=== PATIENT | female | born 1940 | race African-American/Black ===

== ENCOUNTER 2018-12-15 12:38 | Inpatient (IN) | payer OTHER ==
[2018-12-15 14:49] LABS: Protime INR 1.23
[2018-12-15 14:59] LABS: ALT/SGPT 11 U/L (12-78); AST/SGOT 25 U/L (15-37); Albumin 2.9 g/dL (3.4-5.0); Alkaline Phosphatase 68 U/L (45-117); BUN Blood Urea Nitrogen 6 mg/dL (7-18); Bicarbonate 29 mmol/L (21-32); Bilirubin Direct 0.2 mg/dL (0-0.2); Bilirubin Total 0.7 mg/dL (0.2-1.0); Glucose Level 108 mg/dL (74-106); Potassium 3.8 mmol/L (3.5-5.1); Protein, Total 7.9 g/dL (6.4-8.2); Sodium Level 139 mmol/L (136-145)
[2018-12-15 15:00] LABS: Hematocrit 27.9 % (36.0-45.0); MPV 8.3 fL (7.6-11.3); RBC Red Blood Cell Count 2.95 M/uL (3.86-4.86)
--- NOTE | 2018-12-15 15:27 | RAD REPORT ---
EXAM DESCRIPTION: RAD - Chest Single View - 12/15/2018 3:07 pm CLINICAL HISTORY: left foot wound Chest pain. COMPARISON: No comparisons FINDINGS: Portable technique limits examination quality. The lungs are emphysematous but grossly clear. The heart is normal in size. 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 IMPRESSION: COPD
--- NOTE | 2018-12-15 15:28 | RAD REPORT ---
EXAM DESCRIPTION: RAD - Foot Left 3 View - 12/15/2018 3:07 pm CLINICAL HISTORY: open wound Pain and swelling COMPARISON: No comparisons FINDINGS: Soft tissue defect is seen along the lateral anterior aspect of the foot. Evidence of mids haft amputation fifth metatarsal seen. Subtle demineralization of the amputation stump laterally prob ably indicates osteomyelitis. Significant soft tissue swelling is noted which limits bone detail, gwen ng with osteopenia. Posterior and plantar calcaneal spurs are seen.
--- NOTE | 2018-12-15 15:39 | EDPHYS ---
Physician Documentation [facility] Name: Paula Cobian Age: 78 yrs Sex: Female : 1940 Arrival Date: 12/15/2018 Time: 12:43 Bed 2 Private MD: ED Physician John Joseph HPI: 12/15 13:45 This 78 yrs old Black Female presents to ER via Ambulatory with complaints of Feet cp Swelling, Wound Infection. 13:45 The patient presents with infection. cp 13:45 The complaints affect the left foot. 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 Associated signs and symptoms: Pertinent negatives: calf tenderness, fever. Patient reports worsening infection of chronic open wound left foot. Historical: - Allergies: 12:53 No Known Allergies; hj - Home Meds: 12:53 Unable to obtain [Active]; hj - PMHx: 12:53 Diabetes - NIDDM; Hypertension; hj - PSHx: 12:53 foot surgery; hj - Immunization history:: Adult Immunizations not up to date. - Social history:: Smoking status: Patient/guardian denies using tobacco, Patient/guardian denies using alcohol. - Ebola Screening: : Patient negative for fever greater than or equal to 101.5 degrees Fahrenheit, and additional compatible Ebola Virus Disease symptoms Patient denies exposure to infectious person Patient denies travel to an Ebola-affected area in the 21 days before illness onset. ROS: 13:50 Constitutional: Negative for body aches, chills, fever, poor PO intake. cp 13:50 Eyes: Negative for injury, pain, redness, and discharge. cp 13:50 ENT: Negative for drainage from ear(s), ear pain, sore throat, difficulty swallowing, difficulty handling secretions. 13:50 Cardiovascular: Negative for chest pain. 13:50 Respiratory: Negative for cough, shortness of breath, wheezing. 13:50 Abdomen/GI: Negative for abdominal pain, nausea, vomiting, and diarrhea. 13:50 Skin: Positive for of the left foot, open wound. 13:50 Neuro: Negative for altered mental status, headache. 13:50 All other systems are negative. Exam: 14:00 Constitutional: The patient appears in no acute distress, alert, awake, cp non-diaphoretic, non-toxic, well developed, well nourished. 14:00 Head/Face: Normocephalic, atraumatic. cp 14:00 Eyes: Periorbital structures: appear normal, Pupils: equal, round, and reactive to light and accomodation, Extraocular movements: intact throughout, Conjunctiva: normal, no exudate, no injection, Sclera: no appreciated abnormality, Lids and lashes: appear normal, bilaterally. 14:00 ENT: External ear(s): are unremarkable, Nose: is normal, Mouth: Lips: moist, Oral mucosa: moist, Posterior pharynx: is normal, airway is patent, no erythema, no exudate. 14:00 Neck: ROM/movement: is normal, is supple, without pain, no range of motions limitations, no nuchal rigidity. 14:00 Chest/axilla: Inspection: normal, Palpation: is normal, no crepitus, no tenderness. 14:00 Cardiovascular: Rate: normal, Rhythm: regular, Edema: ankle edema, that is mild, JVD: is not appreciated. 14:00 Respiratory: the patient does not display signs of respiratory distress, Respirations: normal, no use of accessory muscles, no retractions, no splinting, no tachypnea, labored breathing, is not present, Breath sounds: are clear throughout, no decreased breath sounds, no stridor, no wheezing. 14:00 Abdomen/GI: Inspection: abdomen appears normal, Palpation: abdomen is soft and non-tender, in all quadrants, involuntary guarding, is not appreciated. 14:00 Back: pain, is absent, ROM is normal. 14:00 Skin: open wound lateral aspect left foot with foul odor and mild purulent discharge. 14:00 Neuro: Orientation: no acute changes, per family, Mentation: no acute changes, per family. 14:16 ECG was reviewed by the Attending Physician. Vital Signs: 12:54 BP 132 / 68; Pulse 89; Resp 18; Temp 97.6(O); Pulse Ox 100% on R/A; Weight 72.57 kg; hj Height 6 ft. 1 in. (185.42 cm); Pain 8/10; 16:38 BP 134 / 66; Pulse 87; Resp 18; Temp 97.6; Pulse Ox 100% on R/A; Height 5 ft. 2 in. sg (157.48 cm) (R); Pain 0/10; 16:38 Body Mass Index 29.26 (72.57 kg, 157.48 cm) sg MDM: 13:17 Patient medically screened. cp 13:45 Differential diagnosis: cellulitis, osteomyelitis, sepsis. cp 14:40 Physician consultation: Jose L Harden DO was contacted at 14:30, regarding admission, cp to the medical/surgical unit. patient's condition, and will see patient in ED, shortly, would like medications started, Vancomycin and cefepime antibiotics. 15:35 Data reviewed: vital signs, nurses notes, lab test result(s), EKG, radiologic studies, cp plain films. 15:35 Test interpretation: by ED physician or midlevel provider: ECG, plain radiologic cp studies. 12/15 13:34 Order name: Wound Culture 12/15 13:34 Order name: Basic Metabolic Panel 12/15 13:34 Order name: Blood Culture Adult (2) 12/15 13:34 Order name: CBC with Diff 12/15 15:12 Interpretation: Normal except: RBC 2.95; HGB 8.8; HCT 27.9; MCHC 31.4; PLT 740; RDW cp 22.6. 12/15 13:34 Order name: Lactate; Complete Time: 15:04 12/15 13:34 Order name: LFT's; Complete Time: 15:04 12/15 15:05 Interpretation: Normal except: ALT 11; ALB 2.9; GLOB 5.0; A/G 0.6. 12/15 13:34 Order name: Procalcitonin 12/15 13:34 Order name: Protime (+inr); Complete Time: 15:04 12/15 13:34 Order name: Ptt, Activated; Complete Time: 15:04 12/15 13:34 Order name: Urine Microscopic Only 12/15 13:35 Order name: Wound Culture [facility] 12/15 13:35 Order name: Basic Metabolic Panel; Complete Time: 15:04 EDAZ 12/15 15:05 Interpretation: Normal except: GLUC 108; BUN 6. cp 12/15 13:35 Order name: Blood Culture [facility] 12/15 15:10 Order name: Manual Differential [facility] 12/15 13:34 Order name: XRAY Foot LEFT 3 View; Complete Time: 15:32 cp 12/15 15:33 Interpretation: Reviewed report. cp 12/15 13:34 Order name: Chest Single View XRAY; Complete Time: 15:32 cp 12/15 13:34 Order name: Accucheck; Complete Time: 14:31 cp 12/15 13:34 Order name: Cardiac monitoring; Complete Time: 14:30 cp 12/15 13:34 Order name: EKG - Nurse/Tech; Complete Time: 14:30 cp 12/15 13:34 Order name: IV Saline Lock - Large Bore; Complete Time: 14:31 cp 12/15 13:34 Order name: Labs collected and sent; Complete Time: 14:31 cp 12/15 13:34 Order name: O2 Per Protocol; Complete Time: 14:31 cp 12/15 13:34 Order name: O2 Sat Monitoring; Complete Time: 14:31 cp 12/15 15:22 Order name: Diet Ada 1800 August; Complete Time: 15:22 ss EC:16 Rate is 74 beats/min. Rhythm is regular. HI interval is normal. QRS interval is normal. cp QT interval is normal. T waves are Inverted in lead aVL. Interpreted by me. Reviewed by me. Administered Medications: 15:50 Drug: Cefepime 1 grams Route: IVPB; Rate: 200 ml/hr; Infused Over: 30 mins; Site: left sg antecubital; 15:55 Drug: vancoMYCIN 1 grams Route: IVPB; Infused Over: 2 hrs; Site: left antecubital; Disposition: 12/16 10:19 Co-signature as Attending Physician, John Joseph MD I agree with the assessment and [facility] plan of care. Disposition: 12/15/18 15:38 Hospitalization ordered by Jose L Harden for Inpatient Admission. Preliminary diagnosis are Osteomyelitis - Left foot, Iron deficiency anemia. - Bed requested for Telemetry/MedSurg (Inpatient). - Status is Inpatient Admission. ss - Condition is Stable. - Problem is an ongoing problem. - Symptoms have improved. UTI on Admission? No Signatures: Dispatcher [employer] EDMS Lorie Hawkins Steven, RN RN sg Anderson, Corey, MD MD cha Smirch, Shelby, RN RN Umang Serrano RN RN John Hernández PA PA cp Corrections: (The following items were deleted from the chart) 12/15 15:58 15:38 Hospitalization Ordered by Jose L Harden DO for Inpatient Admission. Preliminary bd diagnosis is Osteomyelitis - Left foot; Iron deficiency anemia. Bed requested for Telemetry/MedSurg (Inpatient). Status is Inpatient Admission. Condition is Stable. Problem is an ongoing problem. Symptoms have improved. UTI on Admission? No. cp 16:52 15:58 12/15/2018 15:38 Hospitalization Ordered by Jose L Harden DO for Inpatient ss Admission. Preliminary diagnosis is Osteomyelitis - Left foot; Iron deficiency anemia. Bed requested for Telemetry/MedSurg (Inpatient). Status is Inpatient Admission. Condition is Stable. Problem is an ongoing problem. Symptoms have improved. UTI on Admission? No. bd
--- NOTE | 2018-12-15 15:39 | ER ---
Nurse's Notes [facility] Name: Paula Cobian Age: 78 yrs Sex: Female : 1940 Arrival Date: 12/15/2018 Time: 12:43 Bed 2 Private MD: Diagnosis: Osteomyelitis-Left foot;Iron deficiency anemia Presentation: 12/15 12:50 Presenting complaint: Patient states: i have this wound on my L foot for a while, had hj surgery on one of the toes of the L foot, now the foot seems like infected and is swollen; reports chills;. Transition of care: patient was not received from another setting of care. Onset of symptoms was December 15, 2018. Risk Assessment: Do you want to hurt yourself or someone else? Patient reports no desire to harm self or others. Initial Sepsis Screen: Does the patient meet any 2 criteria? Yes Does the patient have a suspected source of infection? Yes: Skin breakdown/wound. Care prior to arrival: None. 12:50 Method Of Arrival: Ambulatory 12:50 Acuity: KRISTIN 3 hj Triage Assessment: 12:54 General: Appears in no apparent distress. uncomfortable, Behavior is calm, cooperative, hj appropriate for age. Pain: Complains of pain in left foot Pain currently is 8 out of 10 on a pain scale. Historical: - Allergies: 12:53 No Known Allergies; hj - Home Meds: 12:53 Unable to obtain [Active]; hj - PMHx: 12:53 Diabetes - NIDDM; Hypertension; hj - PSHx: 12:53 foot surgery; hj - Immunization history:: Adult Immunizations not up to date. - Social history:: Smoking status: Patient/guardian denies using tobacco, Patient/guardian denies using alcohol. - Ebola Screening: : Patient negative for fever greater than or equal to 101.5 degrees Fahrenheit, and additional compatible Ebola Virus Disease symptoms Patient denies exposure to infectious person Patient denies travel to an Ebola-affected area in the 21 days before illness onset. Screenin:54 Abuse screen: Denies threats or abuse. Denies injuries from another. Nutritional hj screening: No deficits noted. Tuberculosis screening: No symptoms or risk factors identified. Fall Risk None identified. Assessment: 13:15 General: Appears in no apparent distress. comfortable, slender, well developed, well sg nourished. Pain: Complains of pain in left foot Quality of pain is described as aching, tender. Neuro: Level of Consciousness is awake, alert, obeys commands, Oriented to person, place, time, Pick Up are equal bilaterally Moves all extremities. Full function Speech is normal. Cardiovascular: Heart tones S1 S2 present Capillary refill is brisk in bilateral fingers Patient's skin is warm and dry. Chest pain is denied. Respiratory: Airway is patent Respiratory effort is even, unlabored, Respiratory pattern is regular, symmetrical. GI: No signs and/or symptoms were reported involving the gastrointestinal system. : No signs and/or symptoms were reported regarding the genitourinary system. EENT: No signs and/or symptoms were reported regarding the EENT system. Derm: Skin is fragile, is thin, Skin is dry, Skin is normal, Skin temperature is cool. Musculoskeletal: Range of motion: intact in all extremities. 15:05 Reassessment: Dr. Harden at bedside to discuss admission and plan of care with patient. ss Pt cleaned of urinary incontinence. 15:23 Reassessment: Patient appears in no apparent distress at this time. sg 15:50 Reassessment: Patient appears in no apparent distress at this time. a wound culture has sg been obtained of pt left foot, surgical wound. 16:02 Reassessment: Magaly BROWN at bedside with pt at this time, update on need for admit, pt sg and pt family stated understanding. Vital Signs: 12:54 BP 132 / 68; Pulse 89; Resp 18; Temp 97.6(O); Pulse Ox 100% on R/A; Weight 72.57 kg; hj Height 6 ft. 1 in. (185.42 cm); Pain 8/10; 16:38 BP 134 / 66; Pulse 87; Resp 18; Temp 97.6; Pulse Ox 100% on R/A; Height 5 ft. 2 in. sg (157.48 cm) (R); Pain 0/10; 16:38 Body Mass Index 29.26 (72.57 kg, 157.48 cm) sg ED Course: 12:43 Patient arrived in ED. mr 12:53 Triage completed. hj 12:54 Arm band placed on right wrist. hj 12:54 Patient has correct armband on for positive identification. Placed in gown. Bed in low hj position. Call light in reach. Side rails up X 1. Adult w/ patient. 13:17 John Hernández PA is PHCP. cp 13:17 John Joseph MD is Attending Physician. cp 13:40 No provider procedures requiring assistance completed. Initial lab(s) drawn, by ED sg staff, sent to lab. Inserted saline lock: 22 gauge in left antecubital area, using aseptic technique. Blood collected. IV inserted by radio technicianrias Stephen. 15:07 XRAY Foot LEFT 3 View In Process Unspecified. EDMS 15:08 Chest Single View XRAY In Process Unspecified. EDMS 15:30 Jim Muniz, RN is Primary Nurse. sg 15:33 Jose L Harden DO is Hospitalizing Provider. cp Administered Medications: 15:50 Drug: Cefepime 1 grams Route: IVPB; Rate: 200 ml/hr; Infused Over: 30 mins; Site: left sg antecubital; 15:55 Drug: vancoMYCIN 1 grams Route: IVPB; Infused Over: 2 hrs; Site: left antecubital; sg Outcome: 15:38 Decision to Hospitalize by Provider. cp 16:52 Patient left the ED. ss Signatures: Dispatcher [employer] EDGA Jim Muniz, RN RN Nitza Stokes mr Radha Alfredo RN RN Umang Serrano RN RN hj Page, Corey, PA PA cp Corrections: (The following items were deleted from the chart) 12:57 12:54 Pulse 89bpm; Resp 18bpm; Pulse Ox 100% RA; Temp 97.6F Oral; 72.57 kg; Height 6 hj ft. 1 in.; BMI: 21.1; Pain 8/10; hj 14:50 12:50 Initial Sepsis Screen: Does the patient meet any 2 criteria? No. Patient's hj initial sepsis screen is negative. Does the patient have a suspected source of infection? No. Patient's initial sepsis screen is negative. hj
[2018-12-15] MEDS ORDERED: VANCOMYCIN/NS 1 gm 1 GM/250 ML BAG IV ONE (16:00)
[2018-12-15] MEDS ORDERED: CEFEPIME/SWI 1gm 10 ML IVP ONE ×2 (16:00)
[2018-12-15 16:06] LABS: Blood Morphology Comment NOTED (NOT SEEN); Hypochromasia 1+; Platelet Estimate INCR; Poikilocytosis 1+
[2018-12-15 16:07] LABS: Ovalocytes 1+
--- NOTE | 2018-12-15 16:22 | P.HP ---
Certification for Inpatient Patient admitted to: Inpatient With expected LOS: >2 Midnights Patient will require the following post-hospital care: None Practitioner: I am a practitioner with admitting privileges, knowledge of patient current condition, hospital course, and medical plan of care. Services: Services provided to patient in accordance with Admission requirements found in Title 42 Section 412.3 of the Code of Federal Regulations Patient History Date of Service: 12/15/18 Primary Care Provider: Dr. Chavez Reason for admission: Erythema, pain to the left foot History of Present Illness: 78-year-old female presented to the emergency room with left pain and swelling to the left foot. Patient had amputation of the left 5th metatarsal in August 2018. Since then she has been going to wound care for treatment. Over the past several days she has been having increasing pain, erythema. This is not improved. She came to the ER for further evaluation. Patient with history of diabetes. Patient reports seen hematology for anemia. In the ER patient evaluated. White count 8.9, hemoglobin 8.8. Platelet count of 740. Sodium 139, potassium 3.8, BUN of 6, creatinine 0.9 with a GFR of 90. Glucose 108. Lactic acid within normal range. Pro calcitonin negative. Chest x-ray showed COPD changes. X-ray of the foot shows possible osteo myelitis. Patient was admitted for treatment. When I saw the patient in the ER, patient was stable. Patient with history of diabetes, COPD, anemia. Patient was a poor historian. Home medications list reviewed: No - Past Medical/Surgical History Diabetic: Yes -: Diabetes mellitus type 2 -: History of left foot amputation -: Anemia -: amputation to left foot Psychosocial/ Personal History: Patient lives with son. - Family History Family History: Reviewed- Non-Contributory - Social History Smoking Status: Current every day smoker Alcohol use: No CD- Drugs: No Caffeine use: No Place of Residence: Home Review of Systems General: As per HPI Eyes: Unremarkable ENT: Unremarkable Respiratory: Unremarkable Cardiovascular: Unremarkable Gastrointestinal: Unremarkable Genitourinary: Unremarkable Musculoskeletal: Unremarkable Integumentary: As per HPI Neurological: Unremarkable Lymphatics: Unremarkable Physical Examination - Physical Exam General: Alert, In no apparent distress, Oriented x3, Cooperative HEENT: Atraumatic Neck: Supple, No Thyromegaly Respiratory: Clear to auscultation bilaterally, Normal air movement Cardiovascular: Normal pulses, Regular rate/rhythm Gastrointestinal: Normal bowel sounds, Soft and benign, Non-distended, No tenderness, No masses, No rebound, No guarding Integumentary: Other (Left foot cellulitis with amputation noted. ) Neurological: Normal speech, Normal strength at 5/5 x4 extr, Normal tone, Normal affect - Studies Laboratory Data (last 24 hrs) 12/15/18 14:10: PT 14.4 H, INR 1.23, APTT 42.4 H 12/15/18 14:10: WBC 8.9, Hgb 8.8 L, Hct 27.9 L, Plt Count 740 H 12/15/18 14:10: Sodium 139, Potassium 3.8, BUN 6 L, Creatinine 0.58, Glucose 108 H, Total Bilirubin 0.7, AST 25, ALT 11 L, Alkaline Phosphatase 68 Assessment and Plan - Plan Impression: Left foot cellulitis complicated with history of left 5th metatarsal amputation likely with underlying osteomyelitis Diabetes mellitus type 2 COPD Chronic iron deficiency anemia with elevated platelets Tobacco abuse Plan: Left foot cellulitis complicated with history of left 5th metatarsal amputation likely with underlying osteomyelitis: Patient will be admitted for treatment. Will start IV antibiotic therapy. Blood and wound culture obtained. Will keep the patient NPO after midnight and have surgery evaluate patient. Surgery consulted. Will order arterial and venous Doppler of the lower extremities to further assess her vascular system. Will obtain MRI of the left foot to evaluate for osteomyelitis. I will turn the service over to Dr. Pedersen tomorrow. I will go over the plan of care with her. Diabetes mellitus type 2: Will start Accu-Cheks and sliding scale. Will check A1c. Will need to obtain home medication. COPD: Will start COPD medication. Will maintain sats above 90%. Chronic iron deficiency anemia with elevated platelets: Patient with chronic anemia. Overall stable. Platelets elevated likely related to iron deficiency anemia. Case discussed with hematology. She is to review prior records. Tobacco abuse: Will provide cessation education. Patient may require nicotine patch. Discharge Plan: Home Plan to discharge in: Greater than 2 days - Advance Directives Does patient have a Living Will: No Does patient have a Durable POA for Healthcare: No - Code Status/Comfort Care Code Status Assessed: Yes (Patient full code.) Time Spent Managing Pts Care (In Minutes): 55
[2018-12-15] MEDS ORDERED: HYDRALAZINE HCL 20 MG/ML VIAL IV PRN (17:41)
[2018-12-15] MEDS ORDERED: IPRATROPIUM BROM 0.5MG/2.5ML NEB PRN (17:41)
[2018-12-15] MEDS: INSULIN -REGULAR HUMAN 50 UNIT/0.5 ML ML SQ SCH ×2 (17:41→21:28)
[2018-12-15] MEDS ORDERED: ACETAMINOPHEN 500 MG TAB PO PRN (17:41)
[2018-12-15] MEDS ORDERED: ALBUTEROL 2.5 MG/3 ML NEB SOL NEB PRN (17:41)
[2018-12-15] MEDS ORDERED: ONDANSETRON 4 MG/2 ML VIAL IV PRN (17:41)
[2018-12-15] MEDS: TRAMADOL HCL 50 MG TAB PO PRN (18:21)
[2018-12-15] MEDS: NA CHLORIDE 0.9% 1,000 ML IV SCH ×2 (18:23→21:27)
[2018-12-15] MEDS ORDERED: D50W 25 GM/50 ML SYRINGE IV PRN (18:23)
[2018-12-15] MEDS ORDERED: GLUCAGON 1 MG/VIAL IM PRN (18:23)
[2018-12-15 18:26] LABS: Thyroid Stimulating Hormone 1.16 uIU/mL (0.360-3.740)
[2018-12-15] MEDS: ARFORMOTEROL TARTRATE 15 MCG/2 ML VIAL.NEB NEB SCH (19:39)
[2018-12-15 19:57] VITALS: BMI 29.2
[2018-12-15] MEDS: FAMOTIDINE 20 MG TAB PO SCH (21:27)
[2018-12-15] MEDS: ENOXAPARIN 40 MG/0.4 ML SQ SCH (21:31)
[2018-12-15] MEDS: HYDROCODONE/APAP 7.5/325 MG TAB PO PRN (23:36)
[2018-12-16] MEDS: TRAMADOL HCL 50 MG TAB PO PRN (02:59)
[2018-12-16 06:43] LABS: BUN Blood Urea Nitrogen 5 mg/dL (7-18); Bicarbonate 28 mmol/L (21-32); Glucose Level 70 mg/dL (74-106); Magnesium 1.6 mg/dL (1.8-2.4); Potassium 3.4 mmol/L (3.5-5.1); Sodium Level 144 mmol/L (136-145)
[2018-12-16] MEDS: INSULIN -REGULAR HUMAN 50 UNIT/0.5 ML ML SQ SCH ×4 (07:30→22:46)
[2018-12-16] MEDS: ARFORMOTEROL TARTRATE 15 MCG/2 ML VIAL.NEB NEB SCH ×2 (07:34→19:38)
[2018-12-16] MEDS ORDERED: MAGNESIUM SULFATE 1 gm IVPB 1 GM/100 ML BAG IV ONE (08:00)
--- NOTE | 2018-12-16 08:00 | RAD REPORT ---
EXAM DESCRIPTION: US - Extrem Venous W Compress Danie - 12/15/2018 11:10 pm CLINICAL HISTORY: Leg pain and swelling COMPARISON: None. TECHNIQUE: Real-time sonographic evaluation of the bilateral lower extremity common femoral, superfi cial femoral, popliteal and posterior tibial veins was performed. FINDINGS: Normal compressibility, flow augmentation, phasic flow and spontaneous flow are identified in the left and right lower extremity common femoral, superficial femoral, popliteal and posterior t ibial veins. No intraluminal filling defects seen. IMPRESSION: No DVT in either lower extremity.
--- NOTE | 2018-12-16 08:04 | RAD REPORT ---
EXAM DESCRIPTION: US - Lower Extremity Arterial Bilat - 12/15/2018 11:10 pm CLINICAL HISTORY: Bilateral lower extremity pain COMPARISON: None. TECHNIQUE: Waveforms were obtained along the length of each lower extremity. Visual inspection of th e lower extremity arterial tree performed. Velocity values were obtained and recorded. Doppler evalu ation performed. FINDINGS: The right common femoral and superficial femoral arteries show triphasic waveform pattern. Waveform transitions to more biphasic pattern at the popliteal artery. Posterior tibial artery on th e right was monophasic as was the dorsalis pedis artery. Left lower extremity shows a triphasic wavef orm pattern in the common femoral and superficial femoral arteries. Biphasic pattern seen in the popl iteal and posterior tibial arteries. Dorsalis pedis on the left was monophasic. Velocity values were obtained and recorded in the PACs system. IMPRESSION: No occlusion or focal flow restricting lesion identified. Mild plaquing changes are seen along the martínez throughout each lower extremity. Velocity values and waveforms indicate overall mild lower extremity peripheral arterial disease.
--- NOTE | 2018-12-16 08:52 | EKG ---
Test Date: 2018-12-15 Test Time: 14:04:42 Inter Com Installer: SWG MEASUREMENT RESULTS: Intervals: Rate: 74 NM: 162 QRSD: 92 QT: 414 QTc: 459 [place]: P: 52 NM: 162 QRS: 83 T: 83 INTERPRETIVE STATEMENTS: Normal sinus rhythm Nonspecific ST abnormality Abnormal ECG No previous ECG available for comparison Electronically Signed On 12-16-18 08:50:32 CDT by Russ Rivers
[2018-12-16 08:55] LABS: Absolute Lymphocytes (CBC) 1.6 K/uL (0.7-4.9); Absolute Monocytes 0.3 K/uL (0.1-1.3); Absolute Neutrophil 4.9 K/uL (1.8-8.0); Basophils % 0.9 % (0-1.3); Eosinophils % 2.2 % (0-4.4); Hematocrit 27.3 % (36.0-45.0); Lymphocytes % 23.1 % (15.3-44.8); Monocytes % 4.7 % (3.3-12.3)
[2018-12-16] MEDS: KCL 20 MEQ/100 mL IVPB 20 MEQ/100 ML BAG IV SCH ×3 (09:00→11:00)
[2018-12-16] MEDS ORDERED: VANCOMYCIN 1 GM in NA CHLORIDE 0.9% 500 ML IVPB SCH (09:00)
[2018-12-16] MEDS ORDERED: CEFEPIME 1 GM/VIAL IV SCH (09:00)
[2018-12-16] MEDS: SOD FERRIC GLUC COMPLX/SUCROSE 125 MG in NA CHLORIDE 0.9% 100 ML IV SCH (09:58)
[2018-12-16] MEDS: ENOXAPARIN 40 MG/0.4 ML SQ SCH (09:59)
[2018-12-16] MEDS: CEFEPIME/SWI 1gm 10 ML IVP SCH (09:59)
[2018-12-16] MEDS: FAMOTIDINE 20 MG TAB PO SCH ×2 (09:59→21:12)
[2018-12-16 10:25] LABS: Platelet Estimate INCR
[2018-12-16 10:26] LABS: Blood Morphology Comment NOT SEEN (NOT SEEN); Platelets, Giant PRESENT
[2018-12-16] MEDS: VANCOMYCIN 1.25 GM in NA CHLORIDE 0.9% 250 ML IVPB SCH (11:46)
[2018-12-16] MEDS ORDERED: POTASSIUM CL SA 10 MEQ TAB PO ONE (13:02)
[2018-12-16] MEDS: GLUCERNA SHAKE 237 ML CAN PO SCH ×2 (14:42→21:13)
--- NOTE | 2018-12-16 15:32 | CON ---
Date of Consultation: 12/15/2018 Reason: Wound, left foot. History Of Present Illness: The patient is an 78-year-old female, presented with left foot pain and swelling. She had an amputation of the left fifth metatarsal bone in August. She has been going t o her transfer knitter; however, she had increasing pain and erythema over the last few days, which had not improved. She came to the ER for further evaluation. No purulent discharge. Feel little better af ter admission. X-ray was done, which shows possible ostia, the patient was admitted and I was consul dawna. Review of Systems: Otherwise negative. No sore throat, runny nose, cough, headaches, or dizziness. No chest pain. No fever or chills. Past Medical History: Diabetes, anemia. Past Surgical History: Left foot fifth metatarsal bone amputation. Allergies: NONE. Social History: She does smoke, has been counseled. Does not drink alcohol. Lives at home. Physical Examination: Vital Signs: Stable. General: She is afebrile. She is awake, alert, a little confused. Head and Neck: No masses. Chest: Clear. Heart: S1 and S2. Abdomen: Soft. Extremity: Diminished dorsalis pedis and posterior tibial pulses. There is some wrinkling of the sk in. There is shiny skin. There is evidence of chronic arterial disease. There is also wound approx imately 6 x 3 cm on the lateral aspect of the left foot with granulation tissue and fibrin, no erythe ma around it. Currently, no warmth and no purulent discharge. Laboratory Data: White count is 7000, there is no left shift. Platelet count however is elevated. INR is 1.23. Chemistry reviewed. Her hemoglobin A1c is 5.1, procalcitonin is 1.16. Lactic acid was 1.2. X-ray of the foot shows soft tissue defect, evidence of midshaft amputation. Cell demineraliz ation of the amputation stump laterally, could be osteo. Plantar calcaneal spurs are seen. Her veno us Doppler, arterial Doppler reviewed. There is no blood clot and there is no correctable lesion in her arterial tree. Her Doppler ultrasound shows no occlusion or focal flow restricting lesion was id entified. Mild plaquing along the wall throughout each lower extremity. Velocity values and wavefor m indicating overall mild lower extremity peripheral arterial disease. Assessment: Infected wound, left foot. Possible osteomyelitis. Recommendations: Continue antibiotics as ordered. We will check her sedimentation rate, to see if i t helps because the patient was unable to tolerate an MRI because she could not straighten her legs. If actually needed, we could do a bone scan but at this time, we will wait for the sedimentation rat e, and we will treat the patient with oral antibiotics as she does not clearly have evidence of acute osteomyelitis at this time. The x-ray finding could be postsurgical changes. Plan of care was disc ussed in detail with Dr. Pedersen. MELISSA/SEPIDEH Voice ID: [id number] Report ID: [id number]
--- NOTE | 2018-12-16 15:55 | P.PN ---
Subjective Date of Service: 12/16/18 Primary Care Provider: Dr. Chavez Chief Complaint: Erythema, pain to the left foot Patient seen and examined at bedside. No family at bedside. Chart reviewed and case discussed with nursing staff. Complaining of left foot pain that has been unchanged from admission Review of Systems 10-point ROS is otherwise unremarkable Physical Examination - Vital Signs Temperature: 98.0 F Blood Pressure: 137/63 Pulse: 75 Respirations: 16 Pulse Ox (%): 99 - Physical Exam General: Alert, In no apparent distress, Oriented x3 HEENT: Atraumatic, PERRLA, EOMI Neck: Supple, JVD not distended Respiratory: Clear to auscultation bilaterally, Normal air movement Cardiovascular: Regular rate/rhythm, Normal S1 S2 Gastrointestinal: Normal bowel sounds, No tenderness Integumentary: Other (Left foot cellulitis with amputation noted, ) Assessment And Plan - Plan Left foot cellulitis 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 Will follow blood and wound cultures. Continue wound care Surgery consulted, recommendations appreciated. Discussed case with Dr. Leahy, No surgical intervention at this time. Venous Doppler negative for DVT. Arterial Doppler with mild lower extremity peripheral arterial disease without significant occlusion or flow restriction. Unable to do an MRI of the foot as patient cannot straighten like and will not fit in machine. We will continue IV antibiotics at this time. Sedimentation rate ordered. If elevated above 50, will empirically treat as osteomyelitis with IV antibiotics. If not, will continue with oral antibiotics for cellulitis Diabetes mellitus type 2 Will continue Accu-Cheks and sliding scale. COPD Continue COPD medication. Will maintain sats above 90%. Chronic iron deficiency anemia with elevated platelets Patient with chronic anemia. Overall stable. Platelets elevated likely related to iron deficiency anemia. Case discussed with hematology. She is to review prior records. Tobacco abuse Will provide cessation education. Patient may require nicotine patch. DVT prophylaxis: Lovenox GI prophylaxis: None Diet: 1800 Diabetic Disposition: Pending symptomatic improvement, lab testing and antibiotics.
[2018-12-16] MEDS: HYDROCODONE/APAP 7.5/325 MG TAB PO PRN (18:40)
[2018-12-16] MEDS: NA CHLORIDE 0.9% 1,000 ML IV SCH (20:21)
[2018-12-16] MEDS: PANTOPRAZOLE 40MG TABLET PO SCH (21:12)
[2018-12-16] MEDS: TOPIRAMATE 25 MG TAB PO SCH (21:12)
[2018-12-16] MEDS: GABAPENTIN 300 MG CAP PO SCH (21:12)
[2018-12-16] MEDS: HYDROXYUREA 500 MG CAP PO SCH (21:12)
[2018-12-16] MEDS: FERROUS SULFATE 325 MG TAB PO SCH (21:12)
[2018-12-17] MEDS ORDERED: KCL 20 MEQ/100 mL IVPB 20 MEQ/100 ML BAG IV SCH (02:00)
[2018-12-17] MEDS: HYDROCODONE/APAP 7.5/325 MG TAB PO PRN ×2 (02:20→14:49)
[2018-12-17] MEDS: VANCOMYCIN 1.25 GM in NA CHLORIDE 0.9% 250 ML IVPB SCH ×2 (04:10→22:00)
[2018-12-17 07:05] LABS: Absolute Lymphocytes (CBC) 1.5 K/uL (0.7-4.9); Absolute Monocytes 0.6 K/uL (0.1-1.3); Absolute Neutrophil 4.5 K/uL (1.8-8.0); Basophils % 1.1 % (0-1.3); Eosinophils % 1.8 % (0-4.4); Hematocrit 24.4 % (36.0-45.0); Lymphocytes % 22.3 % (15.3-44.8); MPV 8.2 fL (7.6-11.3); Monocytes % 8.2 % (3.3-12.3); RBC Red Blood Cell Count 2.63 M/uL (3.86-4.86)
[2018-12-17] MEDS: INSULIN -REGULAR HUMAN 50 UNIT/0.5 ML ML SQ SCH ×4 (07:30→20:32)
[2018-12-17 07:47] LABS: BUN Blood Urea Nitrogen 6 mg/dL (7-18); Bicarbonate 29 mmol/L (21-32); Glucose Level 81 mg/dL (74-106); Magnesium 1.9 mg/dL (1.8-2.4); Potassium 3.8 mmol/L (3.5-5.1); Sodium Level 142 mmol/L (136-145)
[2018-12-17 08:17] LABS: Anisocytosis 2+; Blood Morphology Comment NOTED (NOT SEEN); Platelet Estimate INCR
[2018-12-17 08:18] LABS: Poikilocytosis 1+
[2018-12-17] MEDS: GLUCERNA SHAKE 237 ML CAN PO SCH ×3 (09:00→20:33)
[2018-12-17] MEDS: TIMOLOL MALEAT OPTH SCH (09:00)
[2018-12-17] MEDS: [UNRECOGNIZED DRUG - OTHER] OPTH SCH (09:00)
[2018-12-17] MEDS: DORZOLAMIDE HCL OPTH SCH (09:00)
[2018-12-17] MEDS: COLLAGENASE 30 GM OINTMENT TOP SCH (09:00)
[2018-12-17] MEDS: CEFEPIME/SWI 1gm 10 ML IVP SCH (09:11)
[2018-12-17] MEDS: SOD FERRIC GLUC COMPLX/SUCROSE 125 MG in NA CHLORIDE 0.9% 100 ML IV SCH (09:12)
[2018-12-17] MEDS: ENOXAPARIN 40 MG/0.4 ML SQ SCH (09:12)
[2018-12-17] MEDS: POTASSIUM CL SA 10 MEQ TAB PO SCH (09:12)
[2018-12-17] MEDS: FAMOTIDINE 20 MG TAB PO SCH ×2 (09:13→20:32)
[2018-12-17] MEDS: TOPIRAMATE 25 MG TAB PO SCH ×2 (09:13→20:32)
[2018-12-17] MEDS: HYDROXYUREA 500 MG CAP PO SCH ×2 (09:13→20:32)
[2018-12-17] MEDS: FUROSEMIDE 20 MG TABLET PO SCH (09:13)
[2018-12-17] MEDS: PANTOPRAZOLE 40MG TABLET PO SCH ×2 (09:13→20:32)
[2018-12-17] MEDS: FERROUS SULFATE 325 MG TAB PO SCH ×2 (09:14→20:32)
[2018-12-17] MEDS: ASPIRIN EC 81 MG TAB PO SCH (09:14)
[2018-12-17] MEDS: LOSARTAN POTASSIUM 50 MG TABLET PO SCH (09:14)
[2018-12-17] MEDS: GABAPENTIN 300 MG CAP PO SCH ×2 (09:14→20:32)
[2018-12-17] MEDS: AMLODIPINE 10 MG TAB PO SCH (09:14)
[2018-12-17] MEDS: NA CHLORIDE 0.9% 1,000 ML IV SCH ×2 (09:16→23:01)
--- NOTE | 2018-12-17 11:24 | P.PN ---
Subjective Date of Service: 12/17/18 Primary Care Provider: Dr. Chavez Chief Complaint: Erythema, pain to the left foot Subjective: No C/O voiced, Improving Patient seen and examined at bedside. No family at bedside. Chart reviewed and case discussed with nursing staff. Complaining of left foot pain that has been unchanged from admission No acute events noted overnight Review of Systems 10-point ROS is otherwise unremarkable Physical Examination - Vital Signs Temperature: 97.4 F Blood Pressure: 131/65 Pulse: 69 Respirations: 16 Pulse Ox (%): 95 - Physical Exam General: Alert, In no apparent distress HEENT: Atraumatic, PERRLA, EOMI Neck: Supple, JVD not distended Respiratory: Clear to auscultation bilaterally, Normal air movement Cardiovascular: Regular rate/rhythm, Normal S1 S2 Gastrointestinal: Normal bowel sounds, No tenderness Musculoskeletal: No tenderness, Other (Left foot cellulitis with amputation noted) Integumentary: No rashes Neurological: Normal speech, Normal tone, Normal affect Lymphatics: No axilla or inguinal lymphadenopathy Assessment And Plan - Plan Left foot cellulitis History of left 5th metatarsal amputation Suspected osteomyelitis We will continue IV antibiotics at this time. Elevated sedimentation rate. Suspected osteomyelitis, bone scan pending for tomorrow. Will consider PICC line for IV vancomycin for 6 weeks. Social work consulted for discharge planning/placement. Continue wound care with collagenase Surgery consulted, recommendations appreciated. Discussed case with Dr. Leahy, No surgical intervention at this time. Venous Doppler negative for DVT. Arterial Doppler with mild lower extremity peripheral arterial disease without significant occlusion or flow restriction. Unable to do an MRI of the foot as patient cannot straighten like and will not fit in machine. Diabetes mellitus type 2 Will continue Accu-Cheks and sliding scale. COPD Continue COPD medication. Will maintain sats above 90%. Chronic iron deficiency anemia with elevated platelets Patient with chronic anemia. Overall stable. Platelets elevated likely related to iron deficiency anemia. Case discussed with hematology Tobacco abuse Will provide cessation education. Patient may require nicotine patch. DVT prophylaxis: Lovenox GI prophylaxis: None Diet: 1800 Diabetic Disposition: Pending IV antibiotics set up, placement for long-term IV antibiotics and bone scan..
[2018-12-17] MEDS: ARFORMOTEROL TARTRATE 15 MCG/2 ML VIAL.NEB NEB SCH ×2 (13:39→20:00)
[2018-12-17] MEDS ORDERED: ZIPRASIDONE MESYLA 20 MG/VIAL IM PRN (19:53)
[2018-12-17] MEDS ORDERED: WATER FOR INJ,STERILE 10 ML IM PRN (19:53)
[2018-12-17] MEDS ORDERED: LORazepam 2 MG/ML VIAL IV ONE (22:03)
[2018-12-17] MEDS ORDERED: LORAZEPAM 1 MG TABLET PO ONE (23:19)
[2018-12-17] MEDS ORDERED: LORazepam 2 MG/ML VIAL IM ONE (23:21)
[2018-12-18] MEDS: HYDROCODONE/APAP 7.5/325 MG TAB PO PRN (01:25)
[2018-12-18 05:18] LABS: Hematocrit 24.4 % (36.0-45.0); MPV 8.3 fL (7.6-11.3); RBC Red Blood Cell Count 2.61 M/uL (3.86-4.86)
[2018-12-18 05:20] LABS: BUN Blood Urea Nitrogen 7 mg/dL (7-18); Bicarbonate 30 mmol/L (21-32); Glucose Level 105 mg/dL (74-106); Potassium 3.7 mmol/L (3.5-5.1); Sodium Level 144 mmol/L (136-145)
[2018-12-18 06:22] LABS: Anisocytosis 2+; Blood Morphology Comment NOTED (NOT SEEN); Ovalocytes 1+; Platelet Estimate INCR
[2018-12-18] MEDS: INSULIN -REGULAR HUMAN 50 UNIT/0.5 ML ML SQ SCH ×4 (07:30→21:00)
[2018-12-18] MEDS: ARFORMOTEROL TARTRATE 15 MCG/2 ML VIAL.NEB NEB SCH ×2 (07:51→19:39)
[2018-12-18] MEDS: FERROUS SULFATE 325 MG TAB PO SCH ×2 (09:00→21:00)
[2018-12-18] MEDS: LOSARTAN POTASSIUM 50 MG TABLET PO SCH (09:00)
[2018-12-18] MEDS: TOPIRAMATE 25 MG TAB PO SCH ×2 (09:00→21:00)
[2018-12-18] MEDS: ASCORBIC ACID 500 MG TABLET PO SCH (09:00)
[2018-12-18] MEDS: FUROSEMIDE 20 MG TABLET PO SCH (09:00)
[2018-12-18] MEDS: PANTOPRAZOLE 40MG TABLET PO SCH ×2 (09:00→21:00)
[2018-12-18] MEDS: ZINC SULFATE 220 MG CAP PO SCH (09:00)
[2018-12-18] MEDS: FAMOTIDINE 20 MG TAB PO SCH ×2 (09:00→21:00)
[2018-12-18] MEDS: ASPIRIN EC 81 MG TAB PO SCH (09:00)
[2018-12-18] MEDS: DORZOLAMIDE HCL OPTH SCH (09:00)
[2018-12-18] MEDS: GLUCERNA SHAKE 237 ML CAN PO SCH ×3 (09:00→21:00)
[2018-12-18] MEDS: [UNRECOGNIZED DRUG - OTHER] OPTH SCH (09:00)
[2018-12-18] MEDS: AMLODIPINE 10 MG TAB PO SCH (09:00)
[2018-12-18] MEDS: POTASSIUM CL SA 10 MEQ TAB PO SCH (09:00)
[2018-12-18] MEDS: HYDROXYUREA 500 MG CAP PO SCH ×2 (09:00→21:00)
[2018-12-18] MEDS: TIMOLOL MALEAT OPTH SCH (09:00)
[2018-12-18] MEDS: GABAPENTIN 300 MG CAP PO SCH ×2 (09:00→21:00)
[2018-12-18] MEDS: SOD FERRIC GLUC COMPLX/SUCROSE 125 MG in NA CHLORIDE 0.9% 100 ML IV SCH (10:23)
[2018-12-18] MEDS: VANCOMYCIN 1.25 GM in NA CHLORIDE 0.9% 250 ML IVPB SCH (10:23)
[2018-12-18] MEDS: CEFEPIME/SWI 1gm 10 ML IVP SCH (10:25)
[2018-12-18] MEDS: ENOXAPARIN 40 MG/0.4 ML SQ SCH (10:29)
--- NOTE | 2018-12-18 11:19 | RAD REPORT ---
EXAM DESCRIPTION: NM - Bone Imaging Three Phase - 12/18/2018 10:54 am CLINICAL HISTORY: Left fifth digit amputation, foot pain and swelling, suspected osteomyelitis COMPARISON: Left foot films December 15 showing amputation of the left distal fifth metatarsal and fift h toe TECHNIQUE: The patient was administered 25.9 mCi Tc 99m MDP. Dynamic flow imaging was performed at the area of interest. Immediate blood pool and 3-4 hour delayed images were obtained. FINDINGS: Dynamic flow imaging shows no grossly abnormal increase in activity to the left foot and a nkle region. Blood pool and delayed imaging shows no abnormal activity in the region of the amputated fifth metatarsal and toe. Osteomyelitis is not suspected. There is increased activity around the rig ht knee that is likely degenerative in etiology. IMPRESSION: No osteomyelitis identifiable on this examination.
[2018-12-18] MEDS: COLLAGENASE 30 GM OINTMENT TOP SCH (11:43)
[2018-12-18] MEDS: NA CHLORIDE 0.9% 1,000 ML IV SCH (12:21)
--- NOTE | 2018-12-18 12:45 | RAD REPORT ---
EXAM DESCRIPTION: RAD - Chest Single View - 12/18/2018 5:10 am CLINICAL HISTORY: The patient is 78 years old and is Female; PICC Placement TECHNIQUE: Frontal view of the chest. COMPARISON: No relevant prior studies available. FINDINGS: LUNGS: The lungs are hyperinflated with chronic coarse interstitial markings. No lobar c onsolidation. PLEURAL SPACE: Unremarkable. No pneumothorax. HEART: Unremarkable. No cardiomegaly. MEDIASTINUM: Unremarkable. BONES/JOINTS: There are degenerative changes of the bones. VASCULATURE: The aorta is ectatic and unfolded. TUBES, LINES AND DEVICES: A left upper extremity PICC is present with the tip in the SVC. OTHER FINDINGS: The patient is rotated. IMPRESSION: A left upper extremity PICC is present with the tip in the SVC. Electronically signed by: Karine Hauser MD 12/18/2018 5:18 AM CDT Due to temporary technical issues with the PACS/Fluency reporting system, reports are being signed by the in house radiologist as a courtesy to ensure prompt reporting. The interpreting radiologist is f ully responsible for the content of the report.
--- NOTE | 2018-12-18 13:40 | P.PN ---
Subjective Date of Service: 12/18/18 Primary Care Provider: Dr. Chavez Chief Complaint: Erythema, pain to the left foot Subjective: Improving Patient seen and examined at bedside. No family at bedside. Chart reviewed and case discussed with nursing staff. Overnight, patient becausem agitated and confsued. Was given ativan and moved to a different room. Review of Systems 10-point ROS is otherwise unremarkable Physical Examination - Vital Signs Temperature: 97.8 F Blood Pressure: 157/93 Pulse: 89 Respirations: 18 Pulse Ox (%): 100 - Physical Exam General: Alert, Other (sleepy) HEENT: Atraumatic, PERRLA, EOMI Neck: Supple, JVD not distended Respiratory: Clear to auscultation bilaterally, Normal air movement Cardiovascular: Regular rate/rhythm, Normal S1 S2 Gastrointestinal: Normal bowel sounds, No tenderness Integumentary: Other (Left foot cellulitis with amputation noted) Neurological: Normal speech, Normal tone, Normal affect Lymphatics: No axilla or inguinal lymphadenopathy Assessment And Plan - Plan Left foot cellulitis History of left 5th metatarsal amputation Suspected osteomyelitis We will continue IV antibiotics at this time. Elevated sedimentation rate. Suspected osteomyelitis, bone scan not consistent with OM. Due to patient's high risk and clinical symptoms, will treat with ocean transportation intermediary IV antibiotics. PICC line in place. Social work consulted for discharge planning/placement. Continue wound care with collagenase Surgery consulted, recommendations appreciated. Discussed case with Dr. Leahy, No surgical intervention at this time. Venous Doppler negative for DVT. Arterial Doppler with mild lower extremity peripheral arterial disease without significant occlusion or flow restriction. Unable to do an MRI of the foot as patient cannot straighten like and will not fit in machine. Diabetes mellitus type 2 Will continue Accu-Cheks and sliding scale. COPD Continue COPD medication. Will maintain sats above 90%. Chronic iron deficiency anemia with elevated platelets Patient with chronic anemia. Overall stable. Platelets elevated likely related to iron deficiency anemia. Case discussed with hematology Tobacco abuse Will provide cessation education. Patient may require nicotine patch. DVT prophylaxis: Lovenox GI prophylaxis: None Diet: 1800 Diabetic Disposition: Pending IV antibiotics set up, placement for long-term IV antibiotics Discharge Plan: Half-Way Critical Care: No Time Spent Managing PTS Care (In Minutes): 35
[2018-12-18] MEDS ORDERED: KCL 20 MEQ/100 mL IVPB 20 MEQ/100 ML BAG IV SCH (19:00)
[2018-12-19] MEDS: NA CHLORIDE 0.9% 1,000 ML IV SCH ×2 (01:18→17:57)
[2018-12-19] MEDS: VANCOMYCIN 1.25 GM in NA CHLORIDE 0.9% 250 ML IVPB SCH (04:30)
[2018-12-19 07:04] LABS: Hematocrit 24.3 % (36.0-45.0)
[2018-12-19] MEDS: INSULIN -REGULAR HUMAN 50 UNIT/0.5 ML ML SQ SCH ×3 (07:30→16:30)
[2018-12-19] MEDS: ARFORMOTEROL TARTRATE 15 MCG/2 ML VIAL.NEB NEB SCH ×2 (08:40→20:16)
[2018-12-19] MEDS: [UNRECOGNIZED DRUG - OTHER] OPTH SCH (09:00)
[2018-12-19] MEDS: DORZOLAMIDE HCL OPTH SCH (09:00)
[2018-12-19] MEDS: GLUCERNA SHAKE 237 ML CAN PO SCH ×2 (09:00→14:00)
[2018-12-19] MEDS: TIMOLOL MALEAT OPTH SCH (09:00)
[2018-12-19 09:21] VITALS: O2SAT 98
[2018-12-19] MEDS: ENOXAPARIN 40 MG/0.4 ML SQ SCH (09:40)
[2018-12-19] MEDS: GABAPENTIN 300 MG CAP PO SCH (09:40)
[2018-12-19] MEDS: ZINC SULFATE 220 MG CAP PO SCH (09:40)
[2018-12-19] MEDS: SOD FERRIC GLUC COMPLX/SUCROSE 125 MG in NA CHLORIDE 0.9% 100 ML IV SCH (09:40)
[2018-12-19] MEDS: CEFEPIME/SWI 1gm 10 ML IVP SCH (09:40)
[2018-12-19] MEDS: FERROUS SULFATE 325 MG TAB PO SCH (09:41)
[2018-12-19] MEDS: FUROSEMIDE 20 MG TABLET PO SCH (09:41)
[2018-12-19] MEDS: HYDROXYUREA 500 MG CAP PO SCH (09:41)
[2018-12-19] MEDS: TOPIRAMATE 25 MG TAB PO SCH (09:41)
[2018-12-19] MEDS: FAMOTIDINE 20 MG TAB PO SCH (09:41)
[2018-12-19] MEDS: ASCORBIC ACID 500 MG TABLET PO SCH (09:41)
[2018-12-19] MEDS: POTASSIUM CL SA 10 MEQ TAB PO SCH (09:41)
[2018-12-19] MEDS: ASPIRIN EC 81 MG TAB PO SCH (09:41)
[2018-12-19] MEDS: AMLODIPINE 10 MG TAB PO SCH (09:42)
[2018-12-19] MEDS: LOSARTAN POTASSIUM 50 MG TABLET PO SCH (09:42)
[2018-12-19] MEDS: COLLAGENASE 30 GM OINTMENT TOP SCH (09:43)
[2018-12-19] MEDS: PANTOPRAZOLE 40MG TABLET PO SCH (09:43)
--- NOTE | 2018-12-19 15:38 | P.DS ---
Admission Date: 12/15/18 Discharge Date: 12/19/18 Primary Care Provider: Dr. Chavez Disposition: TRANSFER TO RESIDENTIAL Discharge Condition: GOOD Reason for Admission: Erythema, pain to the left foot Consultations: General surgery, Dr. Leahy Brief History of Present Illness: 78-year-old female presented to the emergency room with left pain and swelling to the left foot. Patient had amputation of the left 5th metatarsal in August 2018. Since then she has been going to wound care for treatment. Over the past several days she has been having increasing pain, erythema. This is not improved. She came to the ER for further evaluation. Patient with history of diabetes. Patient reports seen hematology for anemia. In the ER patient evaluated. White count 8.9, hemoglobin 8.8. Platelet count of 740. Sodium 139, potassium 3.8, BUN of 6, creatinine 0.9 with a GFR of 90. Glucose 108. Lactic acid within normal range. Pro calcitonin negative. Chest x-ray showed COPD changes. X-ray of the foot shows possible osteo myelitis. Patient was admitted for treatment. When I saw the patient in the ER, patient was stable. Patient with history of diabetes, COPD, anemia. Patient was a poor historian. Hospital Course: Left foot cellulitis History of left 5th metatarsal amputation Suspected osteomyelitis She was admitted, Started on IVF and IV antibiotics with vancomycin and cefepime. Cultures were drawn prior to stand therefore starting antibiotics. Wound care was done. General surgery was consulted. No surgical interventions planned, per surgery. An MRI of the foot was ordered to evaluate for osteomyelitis. Patient could not straighten out her leg and therefore an MRI was not done. Venous Doppler negative for DVT. Arterial Doppler with mild lower extremity peripheral arterial disease without significant occlusion or flow restriction. Patient's sedimentation rate was elevated, therefore she was treated as ostemomyelitis while bone scan was pending. PICC line was placed and x-ray was okay. PICC line was used to give IV antibiotics. Wound cultures growing Enterobacter cloacae and E.coli, sensitive to cefepime. Bone scan was negative for osteomyelitis. Antibiotics were adjusted tp IV cefepime. Vancomycin was discontinued. She was then transferred to a SNF for iV antibiotics and physical therapy. She otherwise remained stable throughout the stay. Vital Signs/Physical Exam: Temp Pulse Resp BP Pulse Ox 97.7 F 95 H 18 138/65 96 03/28/19 11:00 12/19/18 11:00 12/19/18 11:00 12/19/18 11:00 12/19/18 11:00 General: Alert, In no apparent distress HEENT: Atraumatic, PERRLA, EOMI Neck: Supple, JVD not distended Respiratory: Clear to auscultation bilaterally, Normal air movement Cardiovascular: Regular rate/rhythm, Normal S1 S2 Gastrointestinal: Normal bowel sounds, No tenderness Musculoskeletal: Other (Left foot cellulitis with amputation noted.) Integumentary: No rashes Neurological: Normal speech, Normal tone, Normal affect Lymphatics: No axilla or inguinal lymphadenopathy Laboratory Data at Discharge: WBC 5.3 K/uL (4.3-10.9) D 12/18/18 04:27 Hgb 7.7 g/dL (12.0-15.0) L* 12/19/18 06:50 Hct 24.3 % (36.0-45.0) L 12/19/18 06:50 Plt Count 700 K/uL (152-406) H 12/18/18 04:27 PT 14.4 SECONDS (9.5-12.5) H 12/15/18 14:10 INR 1.23 12/15/18 14:10 APTT 42.4 SECONDS (24.3-36.9) H 12/15/18 14:10 Sodium 144 mmol/L (136-145) 12/18/18 04:27 Potassium 3.7 mmol/L (3.5-5.1) 12/19/18 06:50 BUN 7 mg/dL (7-18) 12/18/18 04:27 Creatinine 0.38 mg/dL (0.55-1.3) L 12/18/18 04:27 Glucose 105 mg/dL (74-106) 12/18/18 04:27 Magnesium 2.0 mg/dL (1.8-2.4) 12/18/18 04:27 Total Bilirubin 0.7 mg/dL (0.2-1.0) 12/15/18 14:10 AST 25 U/L (15-37) 12/15/18 14:10 ALT 11 U/L (12-78) L 12/15/18 14:10 Alkaline Phosphatase 68 U/L (45-117) 12/15/18 14:10 Home Medications: Albuterol Sulfate [Proair Hfa] 1 puff IH DAILY 12/15/18 Amlodipine [Norvasc*] 2 tab PO DAILY 12/15/18 Ascorbic Acid [Vitamin C*] 1 tab PO DAILY 12/15/18 Aspirin [Aspirin EC 81 MG] 1 tab PO DAILY 12/15/18 Dorzolamide HCl/Timolol Maleat [Dorzolamide-Timolol Eye Drops] 1 gtt OPTH DAILY 12/15/18 Ferrous Sulfate [Iron] 1 tab PO BID 12/15/18 Furosemide 1 tab PO DAILY 12/15/18 Gabapentin 1 cap PO BID 12/15/18 Hydrocodone 5/APAP 325 [[place] 5/325*] 1 tab PO TID 12/15/18 Hydroxyurea [Hydrea*] 1 cap PO BID 12/15/18 Ipratropium/Albuterol Sulfate [Combivent Respimat 20-100 Mcg] 1 puff IH QID PRN 12/15/18 Losartan Potassium [Cozaar] 1 tab PO DAILY 12/15/18 Metformin ER [Glucophage ER*] 1 tab PO BID 12/15/18 Pantoprazole Sodium 1 tab PO BID 12/15/18 Potassium Chloride 20 meq PO DAILY 12/15/18 Topiramate 1 tab PO BID 12/15/18 Collagenase [Santyl Ointment*] 1 appl TOP DAILY tube 12/19/18 Famotidine [Pepcid*] 20 mg PO BID tab 12/19/18 Zinc Sulfate [Zinc Sulfate*] 220 mg PO DAILY cap 12/19/18 Patient Discharge Instructions: Please follow up with your primary care physician in 2-3 days. Please follow up with wound care, Dr. Leahy in 2 weeks. Please return to the Emergency room for worsening symptoms. Diet: AHA Activity: Ad nicole Followup: Iain Leahy MD [ACTIVE - CAN ADMIT] - 1-2 Weeks Time spent managing pt's care (in minutes): 55
[2018-12-19 17:44] VITALS: BP 126/61; TEMP 97.1
[2018-12-19] MEDS: HYDROCODONE/APAP 7.5/325 MG TAB PO PRN (18:27)
== END 2018-12-19 20:54 | DRG 603 ==
LOC: ER 12:38 → ERHOLD 15:06 → 2ND 16:41
PROVIDERS: ADMIT Family Medicine; ATTEND Family Medicine
PROC: 02HV33Z Insertion of Infusion Device into Superior Vena Cava, Percutaneous Approach (ICD-10-PCS; principal; 2018-12-18)
PROC: B548ZZA Ultrasonography of Superior Vena Cava, Guidance (ICD-10-PCS; 2018-12-18)
DX: L03.116 Cellulitis of left lower limb (principal); J44.9 Chronic obstructive pulmonary disease, unspecified; F17.210 Nicotine dependence, cigarettes, uncomplicated; D50.9 Iron deficiency anemia, unspecified; Z89.422 Acquired absence of other left toe(s); E11.51 Type 2 diabetes mellitus with diabetic peripheral angiopathy without gangrene; B96.89 Other specified bacterial agents as the cause of diseases classified elsewhere; B96.20 Unspecified Escherichia coli [E. coli] as the cause of diseases classified elsewhere; Z79.84 Long term (current) use of oral hypoglycemic drugs
CPT/HCPCS: 36415; 71045; 78315; 80048; 80076; 80202; 82040; 82962; 83036; 83605; 83735; 84132; 84145; 84439; 84443; 85014; 85018; 85025; 85610; 85652; 85730; 87040; 87070; 87077; 87186; 87205; 93005; 93925; 93970; 96374; 96375; 97162; 99284; A9503; J0692; J1650; J2916; J3370; J3475; J3486; J3590; J7030; J7605